=== PATIENT | male | born 1980 | race Two or more races ===

== ENCOUNTER 2022-12-20 14:27 | Inpatient (IN) | payer MEDICAID ==
[~2022-12-20] VITALS: Ht 175.3 cm; Wt 68.1 kg
[2022-12-20 15:15] LABS: Basophils # (auto) 0.1 10 ^3/uL (0-0.2); Basophils % (auto) 0.3 % (0.0-2.0); Eosinophils # (auto) 0 10 ^3/uL (0-0.8); Hematocrit 49.7 % (41.0-53.0); Hemoglobin 16.2 g/dL (13.5-17.5); Lymphocytes # (auto) 1.2 10 ^3/uL (0.4-5.4); Mean Corpuscular Hgb Conc. 32.5 g/dL (32.0-36.0); Mean Corpuscular Volume 98.5 fL (80.0-100.0); Monocytes # (auto) 2.2 10 ^3/uL (0-1.3); Monocytes % (auto) 9.1 % (0.0-12.0); Neutrophils # (auto) 21.1 10 ^3/uL (1.6-8.6); Neutrophils % (auto) 85.6 % (37.0-80.0); Red Blood Cells 5.05 10^6/uL (4.5-5.90); Red Cell Distribution Width 13.5 % (11.8-14.3); White Blood Cell 24.7 10^3/uL (4.4-10.8)
[2022-12-20 15:25] LABS: Alanine Aminotransferase 16 U/L (7-40); Albumin 4.6 g/dL (3.2-4.8); Alkaline Phosphatase 173 U/L (46-116); Anion Gap 17.00001 (5-15); Aspartate Aminotransferase 17 U/L (13-40); Blood Urea Nitrogen 20 mg/dL (9-23); Calcium 9.8 mg/dL (8.7-10.4); Chloride 102 mmol/L (98-107); Potassium 4.5 mmol/L (3.5-5.1); Sodium 129 mmol/L (136-145)
[2022-12-20 15:26] LABS: Bilirubin, Total 0.2 mg/dL (0.2-1.0); Total Protein 8.5 g/dL (5.7-8.2)
[2022-12-20] MEDS ORDERED: INSULIN LANTUS (GLARGINE) 1 /0.01ml (100units/ml) SC ONE (15:30)
[2022-12-20] MEDS ORDERED: DEXTROSE (50%) 50ML SYRG IV PRN (15:30)
[2022-12-20] MEDS: InsuLIN R (HUMAN) 100 UNITS in SODIUM CHL 0.9% 99 ML IV SCH ×2 (15:30→17:48)
[2022-12-20] MEDS: SODIUM CHLORIDE 0.9% 1,000 ML IV SCH ×2 (15:30→17:09)
[2022-12-20 15:38] LABS: Carbon Dioxide < 10.0 mmol/L (20-30)
[2022-12-20 15:40] LABS: Glucose 427 mg/dL (74-106)
[2022-12-20] MEDS ORDERED: SODIUM BICARBONATE 8.4 % INJ 50ML VIAL IV ONE ×2 (16:00→22:15)
[2022-12-20 16:09] LABS: Magnesium 2.2 mg/dL (1.6-2.6)
[2022-12-20 16:10] LABS: Phosphorus 5.5 mg/dL (2.4-5.1)
[2022-12-20] MEDS: ACCU-CHEK COMFORT CURVE STRIP VI SCH ×5 (16:49→23:06)
[2022-12-20 17:12] VITALS: PULSE 100; RESP 22; O2SAT 100
[2022-12-20] MEDS ORDERED: ONDANSETRON HCL 4 MG/2 ML VIAL ONE (17:15)
[2022-12-20] MEDS ORDERED: cefTRIAXone 1GM/50ML D5W 50 ML IV ONE (18:30)
[2022-12-20] MEDS ORDERED: NITROGLYCERIN 0.4 MG SL TAB SL PRN (18:30)
[2022-12-20] MEDS ORDERED: SODIUM CHLORIDE 0.9% 1,000 ML IV ONE (18:30)
[2022-12-20] MEDS ORDERED: MORPHINE SULFATE INJ 2 MG/ml SYRG IV PRN (18:30)
[2022-12-20 19:14] LABS: Lactic Acid w/Reflex 3.3 mmol/L (0.4-2.0)
[2022-12-20 19:30] VITALS: PULSE 105; RESP 21; O2SAT 100
[2022-12-20] MEDS ORDERED: SODIUM CHLORIDE 0.9% 1,000 ML IV SCH ×2 (19:30→21:30)
[2022-12-20 21:33] LABS: Chloride 110 mmol/L (98-107)
[2022-12-20 21:34] LABS: Anion Gap 16.00001 (5-15); Calcium 9.2 mg/dL (8.5-10.1)
[2022-12-20 21:46] LABS: Glucose 283 mg/dL (74-106); Sodium 136 mmol/L (136-145)
[2022-12-20 21:47] LABS: Carbon Dioxide < 10.0 mmol/L (20-30)
[2022-12-20] MEDS: FAMOTIDINE (10MG/ML) 2ML VL IV SCH (22:23)
[2022-12-20 22:53] LABS: BUN/Creatinine Ratio 12.5 (10.0-20.0); Blood Urea Nitrogen 15 mg/dL (9-23)
[2022-12-20] MEDS: SODIUM BICARBONATE 50ML VIAL 50 ML in SOD CHL 0.45% 1,000 ML IV SCH (23:06)
[2022-12-21] MEDS: ACCU-CHEK COMFORT CURVE STRIP VI SCH ×9 (00:22→23:45)
[2022-12-21 00:46] LABS: Albumin 3.6 g/dL (3.2-4.8); Alkaline Phosphatase 100 U/L (46-116); Anion Gap 14.6 (5-15); Aspartate Aminotransferase 14 U/L (13-40); BUN/Creatinine Ratio 17.1 (10.0-20.0); Bilirubin, Total 0.2 mg/dL (0.2-1.0); Blood Urea Nitrogen 18 mg/dL (9-23); Calcium 8.6 mg/dL (8.7-10.4); Carbon Dioxide 10.4 mmol/L (20-30); Chloride 116 mmol/L (98-107); Glucose 203 mg/dL (74-106); Sodium 141 mmol/L (136-145); Total Protein 6.8 g/dL (5.7-8.2)
[2022-12-21 01:09] LABS: Alanine Aminotransferase 9 U/L (7-40)
[2022-12-21 01:12] LABS: Potassium 2.8 mmol/L (3.5-5.1)
[2022-12-21] MEDS: POTASSIUM CHL 20MEQ/100ML 100 ML IV SCH ×3 (01:49→06:27)
[2022-12-21 04:34] LABS: Base Excess -10.3 mmol/L (-2.0-2.0)
[2022-12-21 05:42] LABS: Basophils # (auto) 0 10 ^3/uL (0-0.2); Basophils % (auto) 0.1 % (0.0-2.0); Eosinophils # (auto) 0 10 ^3/uL (0-0.8); Hematocrit 38.8 % (41.0-53.0); Hemoglobin 12.9 g/dL (13.5-17.5); Lymphocytes # (auto) 1.5 10 ^3/uL (0.4-5.4); Mean Corpuscular Hemoglobin 30.8 pg (28.0-32.0); Mean Corpuscular Hgb Conc. 33.3 g/dL (32.0-36.0); Mean Corpuscular Volume 92.6 fL (80.0-100.0); Monocytes # (auto) 1.9 10 ^3/uL (0-1.3); Monocytes % (auto) 11.4 % (0.0-12.0); Neutrophils # (auto) 13.3 10 ^3/uL (1.6-8.6); Neutrophils % (auto) 79.5 % (37.0-80.0); Nucleated Red Blood Cells % 0.1 %; Red Blood Cells 4.19 10^6/uL (4.5-5.90); Red Cell Distribution Width 13.2 % (11.8-14.3); White Blood Cell 16.7 10^3/uL (4.4-10.8)
[2022-12-21 06:17] LABS: Albumin 3.4 g/dL (3.2-4.8); Alkaline Phosphatase 94 U/L (46-116); Anion Gap 9.3 (5-15); Aspartate Aminotransferase 15 U/L (13-40); BUN/Creatinine Ratio 18.9 (10.0-20.0); Blood Urea Nitrogen 18 mg/dL (9-23); Calcium 8.7 mg/dL (8.7-10.4); Carbon Dioxide 16.7 mmol/L (20-30); Chloride 116 mmol/L (98-107); Glucose 173 mg/dL (74-106); Potassium 3.2 mmol/L (3.5-5.1); Sodium 142 mmol/L (136-145)
[2022-12-21 06:18] LABS: Bilirubin, Total 0.2 mg/dL (0.2-1.0); Total Protein 6.4 g/dL (5.7-8.2)
[2022-12-21] MEDS: SODIUM BICARBONATE 50ML VIAL 50 ML in SOD CHL 0.45% 1,000 ML IV SCH ×3 (06:28→18:38)
[2022-12-21 06:31] LABS: Alanine Aminotransferase < 9 U/L (7-40)
[2022-12-21 08:01] VITALS: O2SAT 100
[2022-12-21] MEDS ORDERED: DEXTROSE (50%) 50ML SYRG IV PRN (08:45)
[2022-12-21] MEDS: cefTRIAXone 1GM/50ML D5W 50 ML IV SCH (09:11)
[2022-12-21] MEDS: FAMOTIDINE (10MG/ML) 2ML VL IV SCH ×2 (09:15→22:14)
[2022-12-21] MEDS: ENOXAPARIN SOD 40 MG/0.4 ML SYRINGE SC SCH (09:15)
[2022-12-21] MEDS ORDERED: INSULIN LANTUS (GLARGINE) 1 /0.01ml (100units/ml) SC SCH (10:00)
[2022-12-21] MEDS: InsuLIN REG 1unit/0.01ml Soln (100units/ml) SC SCH ×3 (11:28→20:00)
[2022-12-21 12:28] LABS: Albumin 3.2 g/dL (3.2-4.8); Alkaline Phosphatase 84 U/L (46-116); Anion Gap 7.9 (5-15); Aspartate Aminotransferase 14 U/L (13-40); BUN/Creatinine Ratio 20.8 (10.0-20.0); Blood Urea Nitrogen 16 mg/dL (9-23); Calcium 8.5 mg/dL (8.5-10.1); Carbon Dioxide 21.1 mmol/L (20-30); Chloride 114 mmol/L (98-107); Glucose 134 mg/dL (74-106); Sodium 143 mmol/L (136-145)
[2022-12-21 12:29] LABS: Bilirubin, Total 0.2 mg/dL (0.2-1.0)
[2022-12-21 12:51] LABS: Alanine Aminotransferase < 9 U/L (7-40)
[2022-12-21 16:31] VITALS: BP 120/69; PULSE 81; RESP 16; TEMP 98.1; O2SAT 100
[2022-12-21 18:33] LABS: Albumin 3.2 g/dL (3.2-4.8); Alkaline Phosphatase 82 U/L (46-116); Anion Gap 9.5 (5-15); Aspartate Aminotransferase 18 U/L (13-40); BUN/Creatinine Ratio 20.6 (10.0-20.0); Blood Urea Nitrogen 14 mg/dL (9-23); Calcium 8.7 mg/dL (8.5-10.1); Carbon Dioxide 23.5 mmol/L (20-30); Chloride 109 mmol/L (98-107); Glucose 128 mg/dL (74-106); Sodium 142 mmol/L (136-145)
[2022-12-21 18:34] LABS: Bilirubin, Total 0.3 mg/dL (0.2-1.0); Total Protein 6.1 g/dL (5.7-8.2)
[2022-12-21 18:35] LABS: Alanine Aminotransferase < 9 U/L (7-40)
[2022-12-21 18:36] LABS: Potassium 2.9 mmol/L (3.5-5.1)
[2022-12-21 20:00] VITALS: BP 108/61; PULSE 68; PULSE 70; RESP 18; RESP 19; TEMP 98.5; O2SAT 100
[2022-12-21] MEDS: ACETAMINOPHEN 325 MG TAB PO PRN (20:00)
[2022-12-21 22:00] VITALS: BP 108/61; PULSE 68; RESP 18; TEMP 98.5; O2SAT 100
[2022-12-21] MEDS ORDERED: POTASSIUM CHL 20 Meq TABLET PO ONE (22:45)
[2022-12-22 01:19] LABS: Alkaline Phosphatase 80 U/L (46-116); Anion Gap 9.2 (5-15); Aspartate Aminotransferase 17 U/L (13-40); BUN/Creatinine Ratio 21.7 (10.0-20.0); Bilirubin, Total 0.3 mg/dL (0.2-1.0); Blood Urea Nitrogen 13 mg/dL (9-23); Calcium 8.5 mg/dL (8.7-10.4); Carbon Dioxide 22.8 mmol/L (20-30); Chloride 107 mmol/L (98-107); Glucose 125 mg/dL (74-106); Sodium 139 mmol/L (136-145); Total Protein 5.8 g/dL (5.7-8.2)
[2022-12-22 01:45] LABS: Alanine Aminotransferase < 9 U/L (7-40)
[2022-12-22 01:48] LABS: Potassium 2.3 mmol/L (3.5-5.1)
[2022-12-22] MEDS: SODIUM BICARBONATE 50ML VIAL 50 ML in SOD CHL 0.45% 1,000 ML IV SCH ×4 (02:15→23:35)
[2022-12-22] MEDS: ACCU-CHEK COMFORT CURVE STRIP VI SCH ×6 (03:11→20:32)
[2022-12-22] MEDS: InsuLIN REG 1unit/0.01ml Soln (100units/ml) SC SCH ×6 (04:00→20:32)
[2022-12-22 04:57] VITALS: BP 103/61; PULSE 73; RESP 19; TEMP 98; O2SAT 98
[2022-12-22 05:38] LABS: Alanine Aminotransferase 10 U/L (7-40); Albumin 2.7 g/dL (3.2-4.8); Alkaline Phosphatase 84 U/L (46-116); Anion Gap 11.4 (5-15); Aspartate Aminotransferase 17 U/L (13-40); BUN/Creatinine Ratio 23.7 (10.0-20.0); Blood Urea Nitrogen 14 mg/dL (9-23); Calcium 8.2 mg/dL (8.7-10.4); Carbon Dioxide 23.6 mmol/L (20-30); Chloride 106 mmol/L (98-107); Glucose 135 mg/dL (74-106); Sodium 141 mmol/L (136-145)
[2022-12-22 05:39] LABS: Bilirubin, Total 0.4 mg/dL (0.2-1.0); Total Protein 5.1 g/dL (5.7-8.2)
[2022-12-22 08:00] VITALS: BP 113/68; PULSE 70; PULSE 76; RESP 18; TEMP 98.8; O2SAT 100
[2022-12-22] MEDS: cefTRIAXone 1GM/50ML D5W 50 ML IV SCH (08:38)
[2022-12-22 09:00] VITALS: BP 113/68; PULSE 76; RESP 18; TEMP 98.8; O2SAT 97
[2022-12-22] MEDS: FAMOTIDINE (10MG/ML) 2ML VL IV SCH ×2 (09:39→22:52)
[2022-12-22] MEDS: ENOXAPARIN SOD 40 MG/0.4 ML SYRINGE SC SCH (09:39)
[2022-12-22] MEDS ORDERED: POTASSIUM EFFERVESENT TAB 25 MEQ GT ONE ×2 (11:30→16:00)
[2022-12-22 12:00] VITALS: BP 110/63; PULSE 74; RESP 18; TEMP 98.5; O2SAT 97
[2022-12-22 13:12] LABS: Alkaline Phosphatase 80 U/L (46-116); Aspartate Aminotransferase 17 U/L (13-40); BUN/Creatinine Ratio 22.6 (10.0-20.0); Blood Urea Nitrogen 12 mg/dL (9-23); Calcium 8.3 mg/dL (8.5-10.1); Chloride 105 mmol/L (98-107); Glucose 147 mg/dL (74-106); Sodium 140 mmol/L (136-145)
[2022-12-22 13:13] LABS: Alanine Aminotransferase < 9 U/L (7-40); Bilirubin, Total 0.4 mg/dL (0.2-1.0); Total Protein 5.7 g/dL (5.7-8.2)
[2022-12-22 13:15] LABS: Potassium 2.6 mmol/L (3.5-5.1)
[2022-12-22 17:13] VITALS: BP 105/67; PULSE 73; RESP 16; TEMP 97.7; O2SAT 98
[2022-12-22] MEDS: ACETAMINOPHEN 325 MG TAB PO PRN (17:21)
[2022-12-22 18:48] LABS: Albumin 3.1 g/dL (3.2-4.8); Alkaline Phosphatase 88 U/L (46-116); Anion Gap 8.1 (5-15); Aspartate Aminotransferase 17 U/L (13-40); BUN/Creatinine Ratio 17.2 (10.0-20.0); Blood Urea Nitrogen 11 mg/dL (9-23); Calcium 8.3 mg/dL (8.7-10.4); Carbon Dioxide 25.9 mmol/L (20-30); Chloride 99 mmol/L (98-107); Glucose 222 mg/dL (74-106); Potassium 3.6 mmol/L (3.5-5.1)
[2022-12-22 18:49] LABS: Bilirubin, Total 0.4 mg/dL (0.2-1.0); Total Protein 5.9 g/dL (5.7-8.2)
[2022-12-22 18:54] LABS: Alanine Aminotransferase < 9 U/L (7-40); Sodium 133 mmol/L (136-145)
[2022-12-22 18:58] LABS: Urine Bacteria NONE SEEN /hpf (None Seen); Urine Blood Negative /uL (Negative); Urine Clarity Clear (Clear); Urine Color Yellow (Yellow); Urine Protein, UAD TRACE (Negative); Urine Urobilinogen Normal (Negative); Urine WBC 1 /hpf (0 - 3); Urine pH 6.5 (5.0-8.0)
[2022-12-22 20:00] VITALS: BP 106/64; PULSE 67; PULSE 73; RESP 16; TEMP 98; O2SAT 100
[2022-12-23] VITALS (7 sets, daily range): BP systolic 102–116; BP diastolic 63–71; PULSE 66–76; RESP 16–19; TEMP 97.5–98.8; O2SAT 96–100
[2022-12-23] MEDS: ACCU-CHEK COMFORT CURVE STRIP VI SCH ×7 (00:21→23:21)
[2022-12-23] MEDS: InsuLIN REG 1unit/0.01ml Soln (100units/ml) SC SCH ×7 (00:22→23:29)
[2022-12-23] MEDS: SODIUM BICARBONATE 50ML VIAL 50 ML in SOD CHL 0.45% 1,000 ML IV SCH ×3 (06:32→21:26)
[2022-12-23] MEDS: cefTRIAXone 1GM/50ML D5W 50 ML IV SCH (08:44)
[2022-12-23] MEDS: ACETAMINOPHEN 325 MG TAB PO PRN ×3 (08:58→23:01)
[2022-12-23] MEDS: FAMOTIDINE (10MG/ML) 2ML VL IV SCH ×2 (10:48→23:00)
[2022-12-23] MEDS: ENOXAPARIN SOD 40 MG/0.4 ML SYRINGE SC SCH (10:48)
[2022-12-23] MEDS ORDERED: VANCOMYCIN PER PHARMACY 0 MG IV SCH (12:00)
[2022-12-23 12:48] LABS: Albumin 2.9 g/dL (3.2-4.8); Alkaline Phosphatase 78 U/L (46-116); Anion Gap 10.6 (5-15); Aspartate Aminotransferase 15 U/L (13-40); Bilirubin, Total 0.5 mg/dL (0.2-1.0); Blood Urea Nitrogen 11 mg/dL (9-23); Calcium 8.1 mg/dL (8.5-10.1); Carbon Dioxide 25.4 mmol/L (20-30); Chloride 97 mmol/L (98-107); Glucose 320 mg/dL (74-106); Potassium 3.2 mmol/L (3.5-5.1); Sodium 133 mmol/L (136-145); Total Protein 5.7 g/dL (5.7-8.2)
[2022-12-23 12:56] LABS: Alanine Aminotransferase 9 U/L (7-40)
[2022-12-23] MEDS ORDERED: VANCOMYCIN 1GM/250ML 250 ML IV ONE (13:15)
[2022-12-23] MEDS: MUPIROCIN 2% OINT 15gm or 22gm TOP SCH (23:00)
[2022-12-23] MEDS: VANCOMYCIN 1GM/250ML 250 ML IV SCH (23:00)
[2022-12-24] MEDS: SODIUM BICARBONATE 50ML VIAL 50 ML in SOD CHL 0.45% 1,000 ML IV SCH ×3 (03:15→17:15)
[2022-12-24] MEDS: ACCU-CHEK COMFORT CURVE STRIP VI SCH ×4 (04:08→16:00)
[2022-12-24] MEDS: InsuLIN REG 1unit/0.01ml Soln (100units/ml) SC SCH ×4 (04:13→17:30)
[2022-12-24 05:00] VITALS: BP 114/72; PULSE 60; RESP 16; TEMP 97.9; O2SAT 98
[2022-12-24 06:16] LABS: Chloride 99 mmol/L (98-107); Sodium 139 mmol/L (136-145)
[2022-12-24 06:17] LABS: Calcium 8.2 mg/dL (8.5-10.1)
[2022-12-24 06:22] LABS: BUN/Creatinine Ratio 15.9 (10.0-20.0); Blood Urea Nitrogen 10 mg/dL (9-23)
[2022-12-24 06:38] LABS: Glucose 144 mg/dL (74-106)
[2022-12-24 06:41] LABS: Potassium 2.6 mmol/L (3.5-5.1)
[2022-12-24] MEDS ORDERED: POTASSIUM CHL 20 Meq TABLET PO ONE (07:00)
[2022-12-24 08:00] VITALS: RESP 18; O2SAT 98
[2022-12-24 08:30] VITALS: BP 108/64; PULSE 62; RESP 19; TEMP 97.6; O2SAT 98
[2022-12-24] MEDS: cefTRIAXone 1GM/50ML D5W 50 ML IV SCH (08:43)
[2022-12-24] MEDS: ENOXAPARIN SOD 40 MG/0.4 ML SYRINGE SC SCH (08:43)
[2022-12-24] MEDS: ACETAMINOPHEN 325 MG TAB PO PRN (08:44)
[2022-12-24] MEDS: MUPIROCIN 2% OINT 15gm or 22gm TOP SCH (10:31)
[2022-12-24] MEDS: FAMOTIDINE (10MG/ML) 2ML VL IV SCH (10:31)
[2022-12-24] MEDS: VANCOMYCIN 1GM/250ML 250 ML IV SCH (12:44)
[2022-12-24 13:00] VITALS: BP 112/67; PULSE 60; RESP 18; TEMP 98.4; O2SAT 99
[2022-12-24] MEDS ORDERED: INSU70IN3 SC (16:20)
[2022-12-24] MEDS ORDERED: INSU100I70 SC (16:20)
== END 2022-12-24 19:01 | disposition home or self-care (01) | DRG 720 ==
LOC: ER 14:27 → EDBD 18:28 → TELE 18:28 → TELE-WESTW 12-21 15:01
PROVIDERS: ADMIT Nurse Practitioner Family; ATTEND Family Medicine
DX: A41.9 Sepsis, unspecified organism (principal); G93.41 Metabolic encephalopathy; E10.10 Type 1 diabetes mellitus with ketoacidosis without coma; E86.0 Dehydration; E87.1 Hypo-osmolality and hyponatremia; Z91.148 Patient's other noncompliance with medication regimen for other reason; D72.829 Elevated white blood cell count, unspecified; E87.6 Hypokalemia; B95.62 Methicillin resistant Staphylococcus aureus infection as the cause of diseases classified elsewhere; L03.111 Cellulitis of right axilla; F17.210 Nicotine dependence, cigarettes, uncomplicated; Z79.4 Long term (current) use of insulin
CPT/HCPCS: 36415; 36600; 71045; 80048; 80053; 81001; 82010; 82805; 82962; 83036; 83605; 83735; 83930; 84100; 84484; 85025; 87040; 87077; 87086; 87186; 87205; 93970; 99291; G0378; J0696; J1815; J2405; J3480; J3490